=== PATIENT | male | born 1950 | race Caucasian/White ===

== ENCOUNTER → 2018-08-08 | Outpatient (CLI) | payer BC ==
[~2018-08-08] MED LIST: CEPH500 PO; CYCL10 PO; HYDCHL25 PO; LORA1 PO; METF500; NAPR500 PO; Norco 5-325 Ta1 EACH PO; OXYACE5T PO; RXCYCL10 PO; RXOXYACE PO; SIMV40 PO; TRAZ100 PO; ZESTRIL40 MG PO
== END | disposition home or self-care (01) ==
LOC: PLD 11:05 → LAB SHORT 11:05
DX: L83 Acanthosis nigricans (principal); L98.9 Disorder of the skin and subcutaneous tissue, unspecified; R23.4 Changes in skin texture
CPT/HCPCS: 88305; 88312

== ENCOUNTER → 2022-02-24 | Outpatient (CLI) | payer MEDICARE ==
[2022-02-24 11:42] LABS: Microalb/Creat Ratio UR, Rand 24.015 mg/g (0.000-30.000); Microalbumin, Random Urine 32.9 mg/L (0.000-20.000)
== END | disposition home or self-care (01) ==
LOC: LAB SHORT 08:00 → LAB 08:00
PROVIDERS: Nurse Practitioner Family
DX: E11.9 Type 2 diabetes mellitus without complications (principal)
CPT/HCPCS: 82043; 82570

== ENCOUNTER 2023-12-30 08:46 | Day surgery (SDC) | payer MEDICARE ==
[~2023-12-30] VITALS: Ht 167.6 cm; Wt 87.0 kg
[~2023-12-30 08:46] MED LIST changes: +ALBU90OI INH; +AMLO5 PO; +ATOR20 PO; +Aspir 8181 MG PO; +Atarax10 MG PO; +Ativan1 MG PO; +CARV6.25 PO; +Lactated Ringer's 1,000 ML IV ONE; +ZESTRIL40 M1 PO; +propofoL 50 ML IV ONE
[2023-12-30] MEDS ORDERED: Lactated Ringer's 1,000 ML IV ONE (10:23)
--- NOTE | 2023-12-30 10:34 | NUR ---
12/30/23 1034 Yamila Olivera PT. DENIES ANY PAIN.
--- NOTE | 2023-12-30 11:19 | NUR ---
12/30/23 1119 Yamila Olivera NACL 3ML USED FOR POLYP REMOVAL ON DESCENDING COLON POLYP
[2023-12-30 12:09] VITALS: BP 112/73
== END 2023-12-30 12:05 | disposition home or self-care (01) ==
LOC: ORSCSDS 08:46
PROVIDERS: Specialist
PROC: 3E0H8KZ Introduction of Other Diagnostic Substance into Lower GI, Via Natural or Artificial Opening Endoscopic (ICD-10-PCS; principal; 2023-12-30 10:30)
PROC: 0DBL8ZX Excision of Transverse Colon, Via Natural or Artificial Opening Endoscopic, Diagnostic (ICD-10-PCS; principal; 2023-12-30 10:30)
PROC: 0DBM8ZX Excision of Descending Colon, Via Natural or Artificial Opening Endoscopic, Diagnostic (ICD-10-PCS; principal; 2023-12-30 10:30)
PROC: 0DBP8ZX Excision of Rectum, Via Natural or Artificial Opening Endoscopic, Diagnostic (ICD-10-PCS; principal; 2023-12-30 10:30)
DX: Z12.11 Encounter for screening for malignant neoplasm of colon (principal); D12.3 Benign neoplasm of transverse colon; D12.4 Benign neoplasm of descending colon; K62.1 Rectal polyp; K64.4 Residual hemorrhoidal skin tags; K57.30 Diverticulosis of large intestine without perforation or abscess without bleeding; Z86.0101 Personal history of adenomatous and serrated colon polyps; E11.9 Type 2 diabetes mellitus without complications; E78.5 Hyperlipidemia, unspecified; I10 Essential (primary) hypertension; F32.A Depression, unspecified; J45.909 Unspecified asthma, uncomplicated; Z79.84 Long term (current) use of oral hypoglycemic drugs; Z79.899 Other long term (current) drug therapy
CPT/HCPCS: 82947; 88305; J2704; J7120

== ENCOUNTER → 2024-03-31 | Outpatient (CLI) | payer MEDICARE ==
[~2024-03-31] MED LIST changes: -Lactated Ringer's 1,000 ML IV ONE; -propofoL 50 ML IV ONE
== END ==
LOC: LAB 18:11 → LAB SHORT 18:11
DX: R31.9 Hematuria, unspecified (principal)
CPT/HCPCS: 87086

== ENCOUNTER 2024-07-15 14:13 | Emergency (ER) | payer MEDICARE ==
[~2024-07-15] VITALS: Ht 167.6 cm; Wt 94.3 kg
[2024-07-15 14:24] VITALS: BP 168/88
[2024-07-15] MEDS ORDERED: TiZANidine HCl 4 MG Tab PO ONE (14:35)
[2024-07-15] MEDS ORDERED: Lidocaine 4% 1 Patch TOP ONE (14:35)
[2024-07-15] MEDS ORDERED: Zanaflex2 M1 PO (14:49)
== END 2024-07-15 15:04 | disposition home or self-care (01) ==
LOC: ER 14:13
DX: M54.50 Low back pain, unspecified (principal); G89.29 Other chronic pain; E11.9 Type 2 diabetes mellitus without complications; J45.909 Unspecified asthma, uncomplicated; G47.00 Insomnia, unspecified; E78.5 Hyperlipidemia, unspecified; I10 Essential (primary) hypertension; F17.200 Nicotine dependence, unspecified, uncomplicated; Z79.84 Long term (current) use of oral hypoglycemic drugs; Z79.899 Other long term (current) drug therapy; Z88.5 Allergy status to narcotic agent
CPT/HCPCS: 99283; A9270